=== PATIENT | female | born 1990 | race African-American/Black ===

== ENCOUNTER 2016-05-18 03:10 | Emergency (ER) | payer OTHER ==
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
== END 2016-05-18 05:01 | disposition home or self-care (01) ==
LOC: CED 03:10
DX: S00.83XA Contusion of other part of head, initial encounter (principal); S80.01XA Contusion of right knee, initial encounter; F17.210 Nicotine dependence, cigarettes, uncomplicated; F41.9 Anxiety disorder, unspecified; V49.40XA Driver injured in collision with unspecified motor vehicles in traffic accident, initial encounter; Y92.410 Unspecified street and highway as the place of occurrence of the external cause
CPT/HCPCS: 70110; 70450; 72040; 72072; 72100; 73562; 99284